=== PATIENT | female | born 1990 | race Caucasian/White ===

== ENCOUNTER 2022-06-08 01:36 | Emergency (ER) | payer BC ==
--- OUTSIDE RECORDS SUMMARY | 2022-06-08 01:38 | XMS REPORT | Continuity of Care Document ---
:1990 Author Organization [facility] t Address [address] [place] [address] Care Team Providers Name Role Phone MAURICE FLETCHER Attending Clinician Unavailable Payers Payer Name Policy Type Policy Number Effective Date Expiration Date S [facility] 2 [id number] 2021 00:00:00 Problems This patient has no known problems. Allergies, Adverse Reactions, Alerts Allergy Allergy Status Severity Reaction(s) Onset Inactive Treating Comm ents Source Name Type Date Date Clinician hydrocod DA Active [place] 2018-04 [facility] [place] Medications This patient has no known medications. Procedures This patient has no known procedures. Encounters Start End Encounter Admission Attending Care Care Encounter Source Date/Time Date/Time Type Type Clinicians Facility Department ID 2021-11-03 2021-11-03 Outpatient SUSY FLETCHER [id number] Susy 14:45:00 14:45:00 MAURICE dc Results Test Description Test Time Test Comments Results Result Comments Source [facility] PANEL 2019-02-05 04:05:00 Test Item Value Reference Range Interpretation Comme nts CREATININE (test code = CREAT) 0.6 mg/dL 0.5-1.0 N SGOT/AST (test code = AST) 18 units/L 15-37 N SGPT/ALT (test code = ALT) 20 units/L 12-78 N LACTIC DEHYDROGENASE(LDH) (test code = LDH) 179 units/L 81-234 N CHEMISTRY 7 [id number] 04:05:00 Test Item Value Reference Range Interpretation Comments SODIUM (test code = NA) 137 mEq/L 135-145 N POTASSIUM (test code = K) 3.8 mEq/L 3.5-5.0 N CHLORIDE (test code = CL) 103 mEq/L 100-115 N CARBON DIOXIDE (test code = CO2) 21 mEq/L 22-31 L ANION GAP (test code = GAP) 17.00 10-20 N GLUCOSE (test code = GLU) 97 mg/dL 65-110 N BLOOD UREA NITROGEN (test code = 11 mg/dL 7-18 N BUN) GLOMERULAR FILTRATION RATE (test 120 ml/min >60 N code = GFR) CALCIUM (test code = CA) 8.7 mg/dL 8.4-10.2 N URIC [id number] 04:05:00 Test Item Value Reference Range Interpretation Comments URIC ACID (test code = URIC) 5.2 mg/dL 2.6-6.0 N PIH [id number] 02:58:00 Test Item Value Reference Range Interpretation Comments CREATININE (test code = CREAT) 0.6 mg/dL 0.5-1.0 N SGOT/AST (test code = AST) 18 units/L 15-37 N SGPT/ALT (test code = ALT) 20 units/L 12-78 N LACTIC DEHYDROGENASE(LDH) (test 179 units/L 81-234 N code = LDH) CHEMISTRY 7 [id number] 02:58:00 Test Item Value Reference Range Interpretation Comments SODIUM (test code = NA) 137 mEq/L 135-145 N POTASSIUM (test code = K) 3.8 mEq/L 3.5-5.0 N CHLORIDE (test code = CL) 103 mEq/L 100-115 N CARBON DIOXIDE (test code = CO2) 21 mEq/L 22-31 L ANION GAP (test code = GAP) 17.00 10-20 N GLUCOSE (test code = GLU) 97 mg/dL 65-110 N BLOOD UREA NITROGEN (test code = 11 mg/dL 7-18 N BUN) GLOMERULAR FILTRATION RATE (test 120 ml/min >60 N code = GFR) CALCIUM (test code = CA) 8.7 mg/dL 8.4-10.2 N AG HEPATITIS B [id number] 00:00:00 Test Item Value Reference Range Interpretation Comments AG HEPATITIS B SURFACE (test code NONREACTIVE NONREACTIVE = HBSAG) IS CONSENT FORM SIGNED FOR HIV TESTING? YAB HEPATITIS C [id number] 00:00:00 Test Item Value Reference Range Interpretation Comments AB HEPATITIS C (test code = NONREACTIVE NONREACTIVE HCVAB) SIGNAL TO CUTOFF (test code = 0.13 <0.80 N CUTOFF) IS CONSENT FORM SIGNED FOR HIV TESTING? YAB [id number] 00:00:00 Test Item Value Reference Range Interpretation Comments AB TREPONEMA (test code = TREPAB) NONREACTIVE NONREACTIVE IS CONSENT FORM SIGNED FOR HIV TESTING? YAB HIV 1 00:00:00 Test Item Value Reference Range Interpretation Comments AB HIV 1 2 (test NONREACTIVE NONREACTIVE Done by [facility] code = [id number]) 4th Gen HIV Ag/Ab Combo Screen IS CONSENT FORM SIGNED FOR HIV TESTING? YCHEMISTRY 7 [id number] 22:52:00 Test Item Value Reference Range Interpretation Comments SODIUM (test code = NA) 137 mEq/L 135-145 N POTASSIUM (test code = K) 3.8 mEq/L 3.5-5.0 N CHLORIDE (test code = CL) 103 mEq/L 100-115 N CARBON DIOXIDE (test code = CO2) 21 mEq/L 22-31 L ANION GAP (test code = GAP) 17.00 10-20 N GLUCOSE (test code = GLU) 97 mg/dL 65-110 N BLOOD UREA NITROGEN (test code = 11 mg/dL 7-18 N BUN) GLOMERULAR FILTRATION RATE (test 120 ml/min >60 N code = GFR) CREATININE (test code = CREAT) 0.6 mg/dL 0.5-1.0 N CALCIUM (test code = CA) 8.7 mg/dL 8.4-10.2 N CBC W/AUTO [id number] 22:25:00 Test Item Value Reference Range Interpretation Comments WHITE BLOOD CELL (test code = WBC) 12.8 K/mm3 6.6-12.1 H RED BLOOD CELL (test code = RBC) 4.24 M/mm3 3.45-5.01 N HEMOGLOBIN (test code = HGB) 12.1 g/dL 10.7-13.9 N HEMATOCRIT (test code = HCT) 36.5 % 32.1-42.1 N MEAN CELL VOLUME (test code = MCV) 86 fL 84.1-94.8 N MEAN CELL HGB (test code = MCH) 28.5 pg 27-35 N MEAN CELL HGB CONCETRATION (test 33.2 gm/dL 32.2-34.1 N code = MCHC) RED CELL DISTRIBUTION WIDTH (test 13.5 % 12.4-16.5 N code = RDW) PLATELET COUNT (test code = PLT) 172 K/mm3 133-385 N IMMATURE PLATELET FRACTION (test 0.0 % 0.0-10.8 N code = IPF) MEAN PLATELET VOLUME (test code = 12.3 fl 9.1-12.7 N MPV) NEUTROPHIL % (test code = NT%) 72.8 % 56.5-79.4 N LYMPHOCYTE % (test code = LY%) 16.6 % 14.3-34.3 N MONOCYTE % (test code = MO%) 7.3 % 5.1-10.4 N EOSINOPHIL % (test code = EO%) 0.6 % 0.1-3.0 N BASOPHIL % (test code = BA%) 0.4 % 0.1-1.0 N NEUTROPHIL # (test code = NT#) 9.3 K/mm3 LYMPHOCYTE # (test code = LY#) 2.1 K/mm3 MONOCYTE # (test code = MO#) 0.9 K/mm3 EOSINOPHIL # (test code = EO#) 0.08 K/mm3 BASOPHIL # (test code = BA#) 0.1 K/mm3 RBC MORPHOLOGY REQUIRED (test code NORMAL NORMAL = RBCM) PLATELET MORPHOLOGY REQUIRED (test NORMAL NORMAL code = PLTMR)
[2022-06-08] MEDS ORDERED: NA CHLORIDE 0.9% 1,000 ML ONE (01:59)
[2022-06-08] MEDS ORDERED: FAMOTIDINE 20 MG/2 ML VIAL IV ONE (01:59)
[2022-06-08] MEDS ORDERED: ONDANSETRON 4 MG/2 ML VIAL ONE ×2 (01:59→04:22)
[2022-06-08 02:10] LABS: Urine Blood Trace-intact (Negative); Urine Glucose Negative (Negative); Urine Protein Negative (Negative); Urine pH 5.5 (5.0-7.0)
[2022-06-08 02:10] LABS: Absolute Lymphocytes (CBC) 0.6 K/uL (0.7-4.9); Hematocrit 43.4 % (36.0-45.0); Lymphocytes % 5.4 % (15.3-44.8); MCV 84.2 fL (80-100); RBC Red Blood Cell Count 5.15 M/uL (3.86-4.86)
[2022-06-08 02:27] LABS: Albumin 3.8 g/dL (3.4-5.0); Bilirubin Total 0.8 mg/dL (0.2-1.0); Potassium 3.8 mmol/L (3.5-5.1); Protein, Total 7.5 g/dL (6.4-8.2)
[2022-06-08 02:47] LABS: SARS-COV-2 RT PCR POSITIVE (NEGATIVE)
--- NOTE | 2022-06-08 04:15 | ER ---
Nurse's Notes [facility] Name: Jacquelin Medina Age: 32 yrs Sex: Female : 1990 Arrival Date: 06/08/2022 Time: 01:39 Bed 13 Private MD: Diagnosis: SARS-associated coronavirus as the cause of diseases classified elsewhere;Vomiting;Diarrhea, unspecified;Dehydration Presentation: 06/08 01:47 Chief complaint: Patient states: nausea vomiting diarrhea since 5 pm now feeling kl lightheaded. Coronavirus screen: Vaccine status: Patient reports receiving the 2nd dose of the covid vaccine. Ebola Screen: Patient negative for fever greater than or equal to 101.5 degrees Fahrenheit, and additional compatible Ebola Virus Disease symptoms. Initial Sepsis Screen: Does the patient meet any 2 criteria? No. Patient's initial sepsis screen is negative. Does the patient have a suspected source of infection? No. Patient's initial sepsis screen is negative. Risk Assessment: Do you want to hurt yourself or someone else? Patient reports no desire to harm self or others. Onset of symptoms was June 07, 2022 at 17:00. 01:47 Method Of Arrival: Ambulatory 01:47 Acuity: FIDELIA 3 kl Triage Assessment: 01:50 General: Appears uncomfortable, ill, well groomed, well developed, Behavior is calm, kl cooperative. Pain: Complains of pain in epigastric area. GI: Reports diarrhea, intolerance of fluids, intolerance of food, nausea, vomiting. 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 - Social history:: Smoking status: Patient denies any tobacco usage or history of. - Family history:: not pertinent. - Hospitalizations: : No recent hospitalization is reported. Screenin:15 [facility] ED Fall Risk Assessment (Adult) History of falling in the last 3 months, lg3 including since admission No falls in past 3 months (0 pts). Abuse screen: Denies threats or abuse. Denies injuries from another. Nutritional screening: No deficits noted. Tuberculosis screening: No symptoms or risk factors identified. Assessment: 02:15 General: Appears in no apparent distress. comfortable, Behavior is calm, cooperative. lg3 Pain: Denies pain. Neuro: No deficits noted. Springer Agitation-Sedation Scale (RASS): 0 - Alert and Calm Level of Consciousness is awake, alert, obeys commands, Oriented to person, place, time, situation. Cardiovascular: No deficits noted. Denies chest pain, shortness of breath, Capillary refill < 3 seconds Clubbing of nail beds is absent JVD is absent Patient's skin is warm and dry. Respiratory: No deficits noted. Airway is patent Trachea midline Respiratory effort is even, unlabored, Respiratory pattern is regular, symmetrical. GI: Abdomen is flat, non-distended, Bowel sounds present X 4 quads. Reports diarrhea, nausea, vomiting. : No deficits noted. No signs and/or symptoms were reported regarding the genitourinary system. EENT: No deficits noted. No signs and/or symptoms were reported regarding the EENT system. Derm: No deficits noted. No signs and/or symptoms reported regarding the dermatologic system. Skin is intact, is healthy with good turgor, Skin is dry, Skin is normal, Skin temperature is warm. Musculoskeletal: No deficits noted. No signs and/or symptoms reported regarding the musculoskeletal system. Circulation, motion, and sensation intact. Range of motion: intact in all extremities. 02:49 Reassessment: Patient appears in no apparent distress at this time. No changes from lg3 previously documented assessment. Patient and/or family updated on plan of care and expected duration. Pain level reassessed. Patient is alert, oriented x 3, equal unlabored respirations, skin warm/dry/pink. Patient states symptoms have improved. 04:01 Reassessment: Patient appears in no apparent distress at this time. No changes from lg3 previously documented assessment. Patient and/or family updated on plan of care and expected duration. Pain level reassessed. Patient is alert, oriented x 3, equal unlabored respirations, skin warm/dry/pink. Patient states feeling better. Vital Signs: 01:47 BP 139 / 92; Pulse 89; Resp 16; Pulse Ox 100% on R/A; kl 02:50 BP 126 / 84; Pulse 72; Resp 17 S; Pulse Ox 100% on R/A; lg3 04:01 BP 131 / 82; Pulse 74; Resp 18 S; Pulse Ox 100% on R/A; lg3 ED Course: 01:39 Patient arrived in ED. [id number] 01:42 Arnaldo Lemus MD is Attending Physician. rn 01:48 Triage completed. kl 01:49 Lana Azar, DOREEN is Primary Nurse. lg3 02:04 COVID-19/FLU A+B Sent. lg3 02:15 Inserted saline lock: 22 gauge in right antecubital area, using aseptic technique. lg3 Blood collected. 02:15 Patient has correct armband on for positive identification. Placed in gown. Bed in low lg3 position. Call light in reach. Side rails up X 1. Client placed on continuous cardiac and pulse oximetry monitoring. NIBP monitoring applied. Door closed. Noise minimized. Warm blanket given. 03:07 CT Abd/Pelvis - IV Contrast Only In Process Unspecified. EDMS 04:24 No provider procedures requiring assistance completed. IV discontinued, intact, lg3 bleeding controlled, No redness/swelling at site. Pressure dressing applied. 04:24 Arm band placed on left wrist. lg3 Administered Medications: 02:04 Drug: NS 0.9% 1000 ml Route: IV; Rate: 1 bolus; Site: right antecubital; lg3 04:24 Follow up: Response: No adverse reaction; IV Status: Completed infusion; IV Intake: lg3 1000ml 02:04 Drug: Pepcid (famotidine) 20 mg Route: IVP; Site: right antecubital; lg3 04:23 Follow up: Response: No adverse reaction; Marked relief of symptoms lg3 02:05 Drug: Zofran (Ondansetron) 4 mg Route: IVP; Site: right antecubital; lg3 04:23 Follow up: Response: No adverse reaction; Marked relief of symptoms lg3 04:23 Drug: Zofran (Ondansetron) 4 mg Route: IVP; Site: right antecubital; lg3 04:24 Follow up: Response: No adverse reaction lg3 Medication: 02:15 VIS not applicable for this client. lg3 Intake: 04:24 IV: 1000ml; Total: 1000ml. lg3 Outcome: 04:14 Discharge ordered by . rn 04:24 Discharged to home ambulatory. lg3 04:24 Condition: stable 04:24 Discharge instructions given to patient, Instructed on discharge instructions, follow up and referral plans. medication usage, Demonstrated understanding of instructions, follow-up care, medications, Prescriptions given X 1. 04:25 Patient left the ED. lg3 Signatures: Dispatcher [employer] EDJeanette Chavez RN RN kl Nieto, Roman, MD MD rn Gibson, Lacie, RN RN lg3 Pamela [email or web address]
--- NOTE | 2022-06-08 04:15 | EDPHYS ---
Physician Documentation [facility] Name: Jacquelin Medina Age: 32 yrs Sex: Female : 1990 Arrival Date: 06/08/2022 Time: 01:39 Bed 13 Private MD: ED Physician Arnaldo Lemus HPI: 06/08 02:34 This 32 yrs old Female presents to ER via Ambulatory with complaints of rn Nausea/Vomiting/diarrhea. 02:34 The patient presents to the emergency department with nausea, vomiting, diarrhea, rn abdominal pain. Onset: The symptoms/episode began/occurred yesterday. Possible causes: unknown, sick contacts, by family, son. The symptoms are aggravated by nothing. The symptoms are alleviated by nothing. Associated signs and symptoms: Pertinent positives: abdominal pain, diarrhea, nausea, vomiting, Pertinent negatives: fever, GI bleeding. Severity of symptoms: At their worst the symptoms were moderate in the emergency department the symptoms are unchanged. The patient has not experienced similar symptoms in the past. The patient has not recently seen a physician. Pt reports nausea/vomiting/diarrhea since yesterday, son sick for 1 day with vomiting/diarrhea but was only one episode. NO fever. No blood in stool. + upper abd pain. . 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 - Social history:: Smoking status: Patient denies any tobacco usage or history of. - Family history:: not pertinent. - Hospitalizations: : No recent hospitalization is reported. ROS: 02:34 Constitutional: Negative for fever, chills, and weight loss, Eyes: Negative for injury, rn pain, redness, and discharge, Neck: Negative for injury, pain, and swelling, Cardiovascular: Negative for chest pain, palpitations, and edema, Respiratory: Negative for shortness of breath, cough, wheezing, and pleuritic chest pain, Abdomen/GI: + abd pain and nausea/vomiting/diarrhea Back: Negative for injury and pain, : Negative for injury, bleeding, discharge, and swelling, MS/Extremity: Negative for injury and deformity, Skin: Negative for injury, rash, and discoloration, Neuro: Negative for headache, numbness, tingling, and seizure. Exam: 02:34 Constitutional: This is a well developed, well nourished patient who is awake, alert, rn and in no acute distress. Head/Face: Normocephalic, atraumatic. ENT: dry MM Cardiovascular: Regular rate and rhythm. No pulse deficits. Respiratory: No increased work of breathing, no retractions or nasal flaring. Abdomen/GI: soft, + mild epigastric tenderness, no rebound, no masses, neg renner Skin: Warm, dry MS/ Extremity: Pulses equal, no cyanosis. Neuro: Awake and alert, GCS 15 Vital Signs: 01:47 BP 139 / 92; Pulse 89; Resp 16; Pulse Ox 100% on R/A; kl 02:50 BP 126 / 84; Pulse 72; Resp 17 S; Pulse Ox 100% on R/A; lg3 04:01 BP 131 / 82; Pulse 74; Resp 18 S; Pulse Ox 100% on R/A; lg3 MDM: 01:42 Patient medically screened. rn 04:13 Differential diagnosis: Nonspecific abd pain, gastritis, viral gastroenteritis, rn gastroenteritis, COVID. Data reviewed: vital signs, nurses notes, lab test result(s), radiologic studies, CT scan, and as a result, I will discharge patient. Counseling: I had a detailed discussion with the patient and/or guardian regarding: the historical points, exam findings, and any diagnostic results supporting the discharge/admit diagnosis, lab results, radiology results, the need for outpatient follow up, to return to the emergency department if symptoms worsen or persist or if there are any questions or concerns that arise at home. Response to treatment: the patient's symptoms have mildly improved after treatment, and as a result, I will discharge patient. Special discussion: Based on the patient's Hx, exam, and Dx evaluation, there is no indication for emergent surgery or inpatient Tx. It is understood by the patient/guardian that if the Sx's persist or worsen they need to return immediately for re-evaluation. I discussed with the patient/guardian in detail that at this point there is no indication for admission to the hospital. It is understood, however, that if the symptoms persist or worsen the patient needs to return immediately for re-evaluation. ED course: COVID +, CT abdomen shows enteritis, stable vitals, will dc home with prn zofran and instructions for oral rehydration and return precautions.. 06/08 01:50 Order name: CBC with Diff; Complete Time: 02:39 rn 06/08 01:50 Order name: CMP; Complete Time: 02:39 rn 06/08 01:50 Order name: Lipase; Complete Time: 02:39 rn 06/08 01:50 Order name: COVID-19/FLU A+B; Complete Time: 02:51 rn 06/08 02:08 Order name: Urine --Ancillary (enter results); Complete Time: 02:51 ds4 06/08 02:10 Order name: Urine Dipstick-Ancillary; Complete Time: 02:39 EDMS 06/08 01:50 Order name: CT Abd/Pelvis - IV Contrast Only rn 06/08 01:50 Order name: IV Saline Lock; Complete Time: 02:05 rn 06/08 01:50 Order name: Labs collected and sent; Complete Time: 02:05 rn 06/08 01:50 Order name: Urine Dipstick-Ancillary (obtain specimen); Complete Time: 02:05 rn 06/08 01:50 Order name: Urine Test (obtain specimen); Complete Time: 02:05 rn Administered Medications: 02:04 Drug: NS 0.9% 1000 ml Route: IV; Rate: 1 bolus; Site: right antecubital; lg3 04:24 Follow up: Response: No adverse reaction; IV Status: Completed infusion; IV Intake: lg3 1000ml 02:04 Drug: Pepcid (famotidine) 20 mg Route: IVP; Site: right antecubital; lg3 04:23 Follow up: Response: No adverse reaction; Marked relief of symptoms lg3 02:05 Drug: Zofran (Ondansetron) 4 mg Route: IVP; Site: right antecubital; lg3 04:23 Follow up: Response: No adverse reaction; Marked relief of symptoms lg3 04:23 Drug: Zofran (Ondansetron) 4 mg Route: IVP; Site: right antecubital; lg3 04:24 Follow up: Response: No adverse reaction lg3 Disposition Summary: 06/08/22 04:14 Discharge Ordered Location: Home rn Problem: new rn Symptoms: have improved rn Condition: Stable rn Diagnosis - SARS-associated coronavirus as the cause of diseases classified elsewhere rn - Vomiting rn - Diarrhea, unspecified rn - Dehydration rn Followup: rn - With: Private Physician - When: As needed - Reason: Recheck today's complaints, Re-evaluation by your physician Discharge Instructions: - Discharge Summary Sheet rn - Dehydration, Adult rn - COVID-19 rn - 10 Things You Can Do to Manage Your COVID-19 Symptoms at Home - 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
[2022-06-08 04:33] VITALS: O2SAT 100
[2022-06-08 04:35] VITALS: BP 131/82
--- NOTE | 2022-06-08 19:55 | RAD REPORT ---
EXAM DESCRIPTION: CT - Abdomen Pelvis W Contrast - 06/08/2022 7:10 am CLINICAL HISTORY: Abd pain TECHNIQUE: Axial computed tomography images of the abdomen and pelvis with intravenous contrast. S agittal and coronal reformatted images were created and reviewed. This CT exam was performed using one or more of the following dose reduction techniques: automated exposure control, adjustment of t he mA and/or kV according to patient size, and/or use of iterative reconstruction technique. COMPARISON: No relevant prior studies available. FINDINGS: Lung bases: Unremarkable. No mass. No consolidation. ABDOMEN: Liver: 1.3 cm right hepatic hyperdensity on arterial phase which becomes isodense on the venous pha se suggestive of a flash filling hemangioma. No follow-up imaging is necessary. Gallbladder and bile ducts: Unremarkable. No calcified stones. No ductal dilation. Pancreas: Unremarkable. No mass. No ductal dilation. Spleen: Unremarkable. No splenomegaly. Adrenals: Unremarkable. No mass. Kidneys and ureters: Subcentimeter renal cortical hypodensities which are too small to characterize . No follow-up imaging is necessary. No calculi. No hydronephrosis. Stomach and bowel: Multiple fluid-filled nondilated small bowel loops. Air-fluid levels within th e proximal large bowel. No obstruction. No mucosal thickening. PELVIS: Appendix: The appendix is not definitively visualized. No findings to suggest acute appendicitis. Bladder: Unremarkable. No mass. Reproductive: Unremarkable as visualized. ABDOMEN and PELVIS: Intraperitoneal space: Unremarkable. No free air. No significant fluid collection. Bones/joints: Chronic bilateral pars interarticularis defects at L5 with associated grade 1 spondyl olisthesis of L5 on S1. No acute fracture. No dislocation. Soft tissues: Unremarkable. Vasculature: Unremarkable. Lymph nodes: Unremarkable. No enlarged lymph nodes. IMPRESSION: 1. Findings which may reflect mild nonspecific enteritis. 2. Other findings as above. 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 The interpreting radiologist is fully responsible for the content of the report.
== END 2022-06-08 04:25 | disposition home or self-care (01) ==
LOC: ER 01:36
DX: U07.1 COVID-19 (principal); E86.0 Dehydration; R19.7 Diarrhea, unspecified; Z88.5 Allergy status to narcotic agent
CPT/HCPCS: 96361; 85025; 36415; 81025; 81003; 83690; 80053; 0240U; 74177; 96375; 96374; 99284; Q9967; J7030; J2405 ×2